=== PATIENT | female | born 1990 | race Caucasian/White ===

== ENCOUNTER 2021-05-09 12:26 | Emergency (ER) | payer OTHER, SELFPAY ==
[2021-05-09 12:41] VITALS: BP 118/62; PULSE 81; RESP 16; TEMP 36.6; O2SAT 98; BMI 36.0
[2021-05-09 14:00] VITALS: BP 118/62; PULSE 80; RESP 18; TEMP 36.6; O2SAT 98
--- NOTE | 2021-05-09 16:19 | ED_ITS ---
HPI - Eye Problem General Chief complaint: Eye Problems Stated complaint: eye infection Time Seen by Provider: 05/09/21 15:18 History of Present Illness HPI Narrative: Patient is regular contact lens user who complains of redness and discharge this morning in the right eye with a feeling that her vision is a little blurry and very mild discomfort in sunlight, no other eye pain Related Data Previous Rx's Medication Instructions Recorded erythromycin 0.5 inch OPHTHALMIC (EYE) TID 7 05/09/21 Days #3.5 g Allergies Allergy/AdvReac Type Severity Reaction Status Date / Time No Known Allergies Allergy Verified 05/09/21 12:44 Review of Systems Review of Systems: Eye redness and discharge right-sided Negatives are no fever no chills no dizziness no weakness no headache no vision loss no skin rash no no headache Yes all other systems are reviewed and are neg ative [facility] Past Medical History Source: nursing notes reviewed Medical History (Updated 05/09/21 @ 16:16 by DILAN Prieto) Anemia Depression Social History Social History Advance Directives: No Advance Directives Information Provided: No Patient : No Physical Exam Vital Signs: Vital Signs: Last Vital Signs Temp 98 F 05/09/21 14:00 Pulse 80 05/09/21 14:00 Resp 18 05/09/21 14:00 BP 118/62 05/09/21 14:00 Pulse Ox 98 05/09/21 14:00 Body Mass Index 36.0 General appearance is comfortable no acute distress The head is normocephalic atraumatic Pupils are equal round reactive to light, extraocular motions are intact, visual acuity is 20 50 on the right side and 20/40 on the left without corrective lenses Fluorescein staining did not show any abrasion or dye uptake Neck is supple Respiratory no distress Skin no rashes Course Course Course Narrative: IOP was 18 Fluorescein staining did not reveal any ulceration or laceration, there was no dye uptake Patient is treated for conjunctivitis of eyes not to wear contact lenses for at least 2 weeks and use her glasses, and if symptoms are resolved follow with eye doctor in 2-3 days Discharge Plan Discharge Clinical Impression: Bacterial conjunctivitis Patient Disposition: Home, Self-Care Additional Instructions: Use antibiotic 3 times a day for a week Return to the ER any time for vision loss increasing eye pain, any worse condition or any concerns Do not use contact lenses for at least 2 weeks, use your glasses Follow with eye doctor next week if symptoms continue Prescriptions: New erythromycin 5 mg/gram (0.5 %) ointment 0.5 inch ophthalmic (eye) TID 7 Days Qty: 3.5 RF: 0 Referrals: Keven Johnson [Physician] - 2 days (Contact lens user with very mild photophobia and discharge from the eye, treated with antibiotic ointment, doubt iritis now but advised to follow-up if symptoms are not improved)
== END 2021-05-09 17:25 | disposition home or self-care (01) ==
PROVIDERS: Emergency Provider Emergency Medicine
DX: H10.89 Other conjunctivitis (principal)
CPT/HCPCS: 99283; 99284

== ENCOUNTER 2021-06-03 18:51 | Emergency (ER) | payer OTHER, SELFPAY ==
--- NOTE | ~2021-06-03 | XR_ITS ---
EXAMINATION: XR CHEST CLINICAL INFORMATION: Chest tightness COMPARISON: None TECHNIQUE: Frontal view of the chest was obtained. 8:47 PM FINDINGS: No significant abnormality is noted involving the heart, lungs, mediastinum, bony thorax or soft tissues. XR/XR chest 1V IMPRESSION: Unremarkable examination.
[2021-06-03 20:16] VITALS: BP 119/75; PULSE 66; RESP 16; TEMP 36.7; O2SAT 99; BMI 40.6
[2021-06-03 21:34] LABS: COVID-19 Test Negative (Negative); IDNOW Serial# 9DD0AD1C
--- NOTE | 2021-06-03 22:14 | ED_ITS ---
HPI - SOB/Dyspnea General Chief Complaint: Dyspnea Stated Complaint: diff breathing Time Seen by Provider: 06/03/21 22:10 Source: patient Mode of arrival: ambulatory Limitations: no limitations History of Present Illness HPI Narrative: 30-year-old female came in for 3 days of chest tightness and shortness of breath, with intermittent coughing nonproductive, patient is fully vaccinated for COVID. Patient had a history of activity-induced asthma. Related Data Previous Rx's Medication Instructions Recorded erythromycin 5 mg/gram (0.5 %) eye 0.5 inch OPHTHALMIC (EYE) TID 7 05/09/21 ointment Days #3.5 g albuterol sulfate 90 mcg/actuation 1 inh INHALATION QID PRN #6.7 g 06/03/21 aerosol inhaler (ProAir HFA) azithromycin 250 mg tablet See Rx Instructions .ROUTE 06/03/21 (Zithromax Z-Gerson) .COMPLEX #6 tab prednisone 20 mg tablet 20 mg PO BID #10 tab 06/03/21 Allergies Allergy/AdvReac Type Severity Reaction Status Date / Time No Known Allergies Allergy Verified 05/09/21 12:44 Review of Systems Review of Systems: All other systems are reviewed and are negative Constitutional: Reports as per HPI and Reports no additional constitutional complaints Eyes: Reports as per HPI and Reports no additional eye complaints Reports system reviewed and no additional complaints, except as documented Cardiovascular: Reports as per HPI and Reports no additional cardiovascular complaints Respiratory: Reports as per HPI and Reports no additional respiratory complaints Gastrointestinal: Reports as per HPI and Reports no additional gastrointestinal complaints Genitourinary: Reports no additional female genitourinary complaints Musculoskeletal: Reports no additional musculoskeletal complaints Skin/Breast: Reports system reviewed and no additional complaints, except as docu Psychiatric: Reports no additional psychiatric complaints Endocrine: Reports no additional endocrine complaints Hematologic/Lymphatic: Reports no additional hematologic/lymphatic complaints Allergic/Immunologic: Reports no additional allergic/immunologic complaints Reports system reviewed and no additional complaints, except as documented and Reports Abnormal speech present [facility] Past Medical History Medical History Anemia Depression Social History Social History Advance Directives: No Advance Directives Information Provided: Yes Physical Exam Vital Signs: Vital Signs: Last Vital Signs Temp 98.0 F 06/03/21 20:16 Pulse 66 06/03/21 20:16 Resp 16 06/03/21 20:16 BP 119/75 06/03/21 20:16 Pulse Ox 99 06/03/21 20:16 Body Mass Index 40.6 Vital signs have been reviewed as appeared to be correct. Blood pressure normal. Heart rate normal. Respiration rate normal. Temperature normal. Oxygen saturation normal. Appearance: Alert. Oriented X3. No acute distress. Head: Normal external exam. Normocephalic. Atraumatic. No Rocha signs noted. No raccoon eyes noted Eyes: PERRLA. EOMI. Conjunctiva and sclera normal. Eyelids normal. ENT: TM's Normal. Pharynx normal. Uvula midline. Moist mucous membranes. No trismus noted. No drooling noted. No muffled voice noted. Neck: Normal inspection. Neck supple. FROM. No adenopathy. Thyroid Normal. No meningeal signs. No neck mass noted. CVS: Normal heart rate and rhythm. Heart sound normal. No murmurs noted. Pulses normal throughout. Respiratory: No respiratory distress. Painless inspiration. Breath sounds normal. Mild diffuse expiratory wheezes, with prolonged expiration, Chest nontender. No accessory muscle usage noted or decreased air movement noted. Abdomen: Soft and nontender. Bowel sounds normal in all 4 quadrants. No distention noted. No organomegaly noted. No visible injury noted. Back: No CVA tenderness. Full range of motion noted. Skin: Skin warm and dry. Normal skin color. Normal skin turgor. No rashes/lesions/lacerations noted. Extremities: No lower extremity edema. Extremities exhibit normal range of motion. Extremities nontender. Neuro: Oriented X 3. Cranial nerve exam: II-XII are grossly intact No motor deficit. No sensory deficit. Reflexes normal. Course Course Course Narrative: 30-year-old female smoker came in with acute bronchitis. Will start the patient on Z-Gerson/prednisone/bronchodilator. MDM - SOB/Dyspnea Lab Data Labs: Lab Results 06/03/21 06/03/21 Range/Units 20:50 20:58 Coronavirus (PCR) Cancelled COVID-19 ([place]) Negative (Negative) COVID-19 Clin Com See Note Influenza Type A (PCR) Cancelled Influenza Type B (PCR) Cancelled RSV RNA Qual (PCR) Cancelled Discharge Plan Discharge Clinical Impression: Bronchopneumonia Patient Disposition: Home, Self-Care Instructions: Acute Bronchitis (ED) Prescriptions: New azithromycin [Zithromax Z-Gerson] 250 mg tablet See Rx Instructions .ROUTE .COMPLEX Qty: 6 RF: 0 prednisone 20 mg tablet 20 mg PO BID Qty: 10 RF: 0 albuterol sulfate [ProAir HFA] 90 mcg/actuation HFA aerosol inhaler 1 inh inhalation QID PRN (Reason: shortness of breath or wheezing) Qty: 6.7 RF: 0 No Action erythromycin 5 mg/gram (0.5 %) ointment 0.5 inch ophthalmic (eye) TID 7 Days Qty: 3.5 RF: 0 Referrals: Physician,Unknown [Primary Care Provider] - 2 days
== END 2021-06-03 22:30 | disposition home or self-care (01) ==
PROVIDERS: Emergency Provider Emergency Medicine
DX: J18.0 Bronchopneumonia, unspecified organism (principal); Z20.822 Contact with and (suspected) exposure to COVID-19
CPT/HCPCS: 36415; 71045; 87635; 99283

== ENCOUNTER 2021-06-15 08:26 | Outpatient (REF) | payer OTHER, SELFPAY ==
[2021-06-15 10:35] LABS: Hematocrit 40.9 % (37-47); Hemoglobin 13.5 g/dl (12.0-16.0); Mean Corpuscular Hemoglobin 30.5 pg (27.0-33.0); Mean Corpuscular Volume 92.5 fL (80-98); Mean Platelet Volume 10.1 fL (9.4-12.3); Platelet Count 146 X10*3/uL (160-400); Red Blood Count 4.42 X10*6/uL (4.20-5.50); Red Cell Distribution Width 13.1 % (11.0-16.0); White Blood Count 4.4 X10*3/uL (4.8-10.8)
[2021-06-15 11:15] LABS: Thyroid Stimulating Hormone 0.92 uIU/mL (0.32-4.0)
[2021-06-15 14:40] LABS: CT PCR NOT DETECTED (Not Detect.); NG PCR NOT DETECTED (Not Detect.)
[2021-06-16 10:13] LABS: BV Int Neg Control Negative (Negative); BV Int Pos Control Positive (Positive)
[2021-06-18 00:21] LABS: HPV mRNA E6/E7 rflx Not Detected (Not Detected)
== END 2021-06-15 08:27 | disposition home or self-care (01) ==
LOC: HO.LAB 08:26
PROVIDERS: Visit Provider Advanced Practice Midwife
DX: Z01.411 Encounter for gynecological examination (general) (routine) with abnormal findings (principal); N92.0 Excessive and frequent menstruation with regular cycle; Z20.2 Contact with and (suspected) exposure to infections with a predominantly sexual mode of transmission; N92.1 Excessive and frequent menstruation with irregular cycle
CPT/HCPCS: 36415; 81025; 84443; 85027; 87480; 87491; 87510; 87591; 87624; 87660; 88142

== ENCOUNTER 2021-07-01 13:57 | Outpatient (REF) | payer OTHER, SELFPAY ==
--- NOTE | ~2021-07-01 | US_ITS ---
EXAMINATION: US PELVIS AND TRANSVAGINAL CLINICAL INFORMATION: Excessive and frequent menstruation COMPARISON: None TECHNIQUE: Ultrasound of the pelvis is performed using both transabdominal and transvaginal transducers along with color Doppler. However, duplex Doppler imaging was not performed. Transvaginal imaging is performed in order to achieve improved visualization and improved Doppler evaluation of ovaries. FINDINGS: Uterus: The uterus which is anteverted and anteflexed, measures 8.6 cm long, 4.4 cm AP and 6 cm transverse. The myometrial echotexture is normal. No evidence of leiomyoma. Small nabothian cyst of the cervix. Endometrium: The endometrium has normal echotexture and measures 0.8 cm AP. No evidence of endometrial mass or endometrial fluid. Adnexa: The ovaries have a normal sonographic appearance. The right ovary is 3.1 x 2.1 x 2.4 cm, volume of 8.2 mL. The left ovary is 3.4 x 2.4 x 2.7 cm, volume 11.5 mL. The dominant follicle within the left ovary measures up to 2.1 cm. The color Doppler images show presence of arterial and venous flow within each ovary. Free fluid: None detected. US/US pelvic and transvaginal IMPRESSION: The uterus and ovaries are sonographically normal. No evidence of uterine leiomyoma.
== END 2021-07-01 13:58 | disposition home or self-care (01) ==
LOC: HO.US 13:57
PROVIDERS: Visit Provider Advanced Practice Midwife
DX: N92.0 Excessive and frequent menstruation with regular cycle (principal)
CPT/HCPCS: 76830; 76856